=== PATIENT | female | born 1945 | race African-American/Black ===

== ENCOUNTER 2021-07-27 10:42 | Outpatient (CLI) | payer OTHER | END 2021-07-27 10:43 | disposition home or self-care (01) | LOC: TBSIIMAG 10:42 | PROVIDERS: ATTEND Neurological Surgery | DX: M47.812 Spondylosis without myelopathy or radiculopathy, cervical region (principal); M50.30 Other cervical disc degeneration, unspecified cervical region | CPT/HCPCS: 72040 ==